=== PATIENT | female | born 1955 | race African-American/Black ===

== ENCOUNTER 2024-10-25 09:48 | Emergency (ER) | payer MEDICARE, MEDICAID ==
[~2024-10-25] VITALS: Ht 157.5 cm; Wt 53.0 kg
[2024-10-25 09:58] VITALS: O2SAT 96
[2024-10-25 10:52] LABS: BASOPHILS % 0.6 % (0.0-2.0); EOSINOPHILS % 0.5 % (0.0-5.0); HEMATOCRIT. 33.4 % (36.0-48.0); HEMOGLOBIN. 10.7 g/dL (12.0-16.0); LYMPHOCYTES % 24.5 % (20.0-50.0); MEAN PLATELET VOLUME 8.0 fl (7.4-10.4); MONOCYTES % 10.1 % (2.0-8.0); NEUTROPHILS % 64.3 % (40.0-76.0); PLATELET 203 x1000/uL (130-400); RED BLOOD CELL COUNT 4.89 mill/uL (4.2-5.4); RED CELL DISTRIBUTION WIDTH 16.0 % (11.6-14.6)
[2024-10-25 10:53] LABS: ADD RBC MORPHOLOGY YES
[2024-10-25 11:05] LABS: CREATININE 1.0 mg/dL (0.6-1.0); UREA NITROGEN BLOOD 14 mg/dL (9-23)
[2024-10-25 11:06] LABS: TROPONIN I HIGH SENSITIVITY < 4 ng/L (3.0-34)
[2024-10-25 11:07] LABS: ASPARTATE AMINOTRANSFERASE 22 IU/L (<34); BILIRUBIN DIRECT 0.2 mg/dL (<=3.0); BILIRUBIN TOTAL 1.0 mg/dL (0.1-1.0); PROTEIN TOTAL 6.9 g/dL (6.0-8.3)
[2024-10-25 11:37] LABS: PLATELET ESTIMATE NORMAL
[2024-10-25 13:12] LABS: TROPONIN I HIGH SENSITIVITY 4 ng/L (3.0-34)
[2024-10-25] MEDS: SODIUM CHLORIDE 0.9% 500 ML IV ONE (13:21)
[2024-10-25 13:53] VITALS: BP 116/59; PULSE 109; RESP 18; TEMP 36.9; O2SAT 100
== END 2024-10-25 14:09 | disposition home or self-care (01) ==
LOC: ER 09:48 → CANBEDREQ 13:05 → ER 14:09
DX: R06.00 Dyspnea, unspecified (principal); G20.A1 Parkinson's disease without dyskinesia, without mention of fluctuations; Z79.899 Other long term (current) drug therapy
CPT/HCPCS: 99285; 71045; 80076; 80048; 83880; 83735; 85025; 84484; 36415; 93005; J7030